=== PATIENT | female | born 2000 | race American Indian/Alaskan Native ===

== ENCOUNTER 2020-11-07 11:19 | Emergency (ER) | payer OTHER ==
[2020-11-07 11:40] VITALS: BP 123/80
--- NOTE | 2020-11-07 12:39 | Emergency Department Report ---
ED HPI - General Chief complaint: Urogenital-Female Stated complaint: POSS MISCARRIAGE Time Seen by Provider: 11/07/20 12:32 Source: patient Mode of arrival: Ambulatory Limitations: No Limitations - History of Present Illness Initial comments: This is a 20-year-old female nontoxic, well nourished in appearance, no acute signs of distress presents to the ED with c/o of vaginal spotting x1 day. Patient stated today and yesterday she noticed some spotting. Patient denies any abdominal or pelvic pain. Patient denies any vaginal discharge or foul odor. Patient denies any nausea, vomiting, chest pain, shortness of breathe, fever, chills, headache, stiff neck, numbness, tingling. Patient denies any urinary symptoms. Patient denies any allergies or PMH. Patient does follow-up with a EYE TECHNICIAN. MD Complaint: vaginal bleeding -: days(s) Radiation: none Severity scale (0 -10): 0 Improves with: none Worsens with: none Associated symptoms: vaginal bleeding. denies: nausea/vomiting, vaginal discharge, abdominal pain, dysuria, headache, vision changes, malaise, dy sparuenia, rash, seizure, shortness of breath, syncope, weakness Vaginal bleeding: light :: Yes Number of weeks : 8 Pre- care: followed by OB - Related Data Allergies Allergy/AdvReac Type Severity Reaction Status Date / Time No Known Allergies Allergy Verified 11/07/20 11:39 ED Review of Systems ROS: Stated complaint: POSS MISCARRIAGE Other details as noted in HPI Comment: All other systems reviewed and negative Constitutional: denies: chills, fever Eyes: denies: eye pain, eye discharge, vision change ENT: denies: ear pain, throat pain Respiratory: denies: cough, shortness of breath, wheezing Cardiovascular: denies: chest pain, palpitations Endocrine: no symptoms reported Gastrointestinal: denies: abdominal pain, nausea, diarrhea Genitourinary: abnormal menses. denies: urgency, dysuria, discharge Musculoskeletal: denies: back pain, joint swelling, arthralgia Skin: denies: rash, lesions Neurological: denies: headache, weakness, paresthesias Psychiatric: denies: anxiety, depression Hematological/Lymphatic: denies: easy bleeding, easy bruising ED Past Medical Hx - Past Medical History Previous Medical History?: No - Surgical History Past Surgical History?: No - Social History Smoking Status: Never Smoker Substance Use Type: None ED Physical Exam - General Limitations: No Limitations General appearance: alert, in no apparent distress - Head Head exam: Present: atraumatic, normocephalic - Eye Eye exam: Present: normal appearance - Neck Neck exam: Present: normal inspection, full ROM - Respiratory Respiratory exam: Absent: respiratory distress - Cardiovascular Cardiovascular Exam: Present: regular rate - GI/Abdominal GI/Abdominal exam: Present: soft, normal bowel sounds. Absent: distended, tenderness, guarding, rebound, rigid, diminished bowel sounds - Extremities Exam Extremities exam: Present: full ROM - Back Exam Back exam: Present: full ROM - Neurological Exam Neurological exam: Present: alert, oriented X3, normal gait - Psychiatric Psychiatric exam: Present: normal affect, normal mood - Skin Skin exam: Present: warm, dry, intact, normal color. Absent: rash ED Course Vital Signs 11/07/20 11/07/20 11:38 11:40 Temperature 98.6 F Pulse Rate 89 Respiratory 20 Rate Blood Pressure 123/80 O2 Sat by Pulse 99 Oximetry - Reevaluation(s) Reevaluation #1: 11/07/20 12:39 Patient is speaking in full sentences with no signs of distress noted. ED Medical Decision Making - Lab Data Result diagrams: 11/07/20 12:32 Lab Results 11/07/20 11/07/20 11/07/20 Range/Units 12:32 12:32 12:57 WBC 4.4 L (4.5-11.0) K/mm3 RBC 4.99 (3.65-5.03) M/mm3 Hgb 13.6 (10.1-14.3) gm/dl Hct 42.0 (30.3-42.9) % MCV 84 (79-97) fl MCH 27 L (28-32) pg MCHC 33 (30-34) % RDW 12.9 L (13.2-15.2) % Plt Count 211 (140-440) K/mm3 Lymph % (Auto) 47.1 H (13.4-35.0) % Weld % (Auto) 7.5 H (0.0-7.3) % Eos % (Auto) 1.8 (0.0-4.3) % Baso % (Auto) 1.0 (0.0-1.8) % Lymph # (Auto) 2.1 (1.2-5.4) K/mm3 Weld # (Auto) 0.3 (0.0-0.8) K/mm3 Eos # (Auto) 0.1 (0.0-0.4) K/mm3 Baso # (Auto) 0.0 (0.0-0.1) K/mm3 Seg Neutrophils % 42.6 (40.0-70.0) % Seg Neutrophils # 1.9 (1.8-7.7) K/mm3 HCG, Quant 7571 H (0-4) mIU/mL Urine Color Straw (Yellow) Urine Turbidity Clear (Clear) Urine pH 7.0 (5.0-7.0) Ur Specific [place] 1.002 L (1.003-1.030) Urine Protein <15 mg/dl (Negative) mg/dL Urine Glucose (UA) Neg (Negative) mg/dL Urine Ketones Neg (Negative) mg/dL Urine Blood Sm (Negative) Urine Nitrite Neg (Negative) Urine Bilirubin Neg (Negative) Urine Urobilinogen < 2.0 (<2.0) mg/dL Ur Leukocyte Esterase Neg (Negative) Urine WBC (Auto) 1.0 (0.0-6.0) /HPF Urine RBC (Auto) 1.0 (0.0-6.0) /HPF U Epithel Cells (Auto) 1.0 (0-13.0) /HPF Hyaline Casts 1 /LPF Blood Type 11/07/20 Range/Units Unknown WBC (4.5-11.0) K/mm3 RBC (3.65-5.03) M/mm3 Hgb (10.1-14.3) gm/dl Hct (30.3-42.9) % MCV (79-97) fl MCH (28-32) pg MCHC (30-34) % RDW (13.2-15.2) % Plt Count (140-440) K/mm3 Lymph % (Auto) (13.4-35.0) % Weld % (Auto) (0.0-7.3) % Eos % (Auto) (0.0-4.3) % Baso % (Auto) (0.0-1.8) % Lymph # (Auto) (1.2-5.4) K/mm3 Weld # (Auto) (0.0-0.8) K/mm3 Eos # (Auto) (0.0-0.4) K/mm3 Baso # (Auto) (0.0-0.1) K/mm3 Seg Neutrophils % (40.0-70.0) % Seg Neutrophils # (1.8-7.7) K/mm3 HCG, Quant (0-4) mIU/mL Urine Color (Yellow) Urine Turbidity (Clear) Urine pH (5.0-7.0) Ur Specific [place] (1.003-1.030) Urine Protein (Negative) mg/dL Urine Glucose (UA) (Negative) mg/dL Urine Ketones (Negative) mg/dL Urine Blood (Negative) Urine Nitrite (Negative) Urine Bilirubin (Negative) Urine Urobilinogen (<2.0) mg/dL Ur Leukocyte Esterase (Negative) Urine WBC (Auto) (0.0-6.0) /HPF Urine RBC (Auto) (0.0-6.0) /HPF U Epithel Cells (Auto) (0-13.0) /HPF Hyaline Casts /LPF Blood Type O POSITIVE - Radiology Data [facility] [address] [place] [address] Ultrasound Report Signed Patient: TONEY MAHMOOD MR#: [id number] : 2000 Acct:[id number] Age/Sex: 20 / F ADM Date: 11/07/20 Loc: ED Attending Dr: Ordering Physician: BI BHAKTA NP Date of Service: 11/07/20 Procedure(s): US OB <= 14 weeks fetus Accession Number(s): [id number] cc: BI BHAKTA NP ULTRASOUND OBSTETRIC INDICATION / CLINICAL INFORMATION: vaginal bleeding. Pelvic pain Clinical Gestational Age (GA) in weeks, days: 7,5 TECHNIQUE: Transabdominal and Transvaginal. COMPARISON: None available. FINDINGS: GESTATIONAL SAC: Well-defined oval shape and intrauterine in location. YOLK SAC: Not visualized EMBRYO/FETUS: pole is seen. - [place]-Rump Length = 0.9 cm = 6.6 weeks, days - Heart Rate, beats per minute (if present) = 149 ADNEXA: There is a 2 cm cyst in the right ovary FREE FLUID: Minimal free fluid is seen in the cul-de-sac ADDITIONAL FINDINGS: 1 cm fibroid is noted in the anterior uterus. IMPRESSION: 1. Single, living intrauterine with estimated sonographic age of 6,6 weeks, days. Signer Name: Aries Cline MD Signed: 11/07/2020 2:22 PM Workstation Name: [id number] Transcribed By: SS Dictated By: Aries Cline MD Electronically Authenticated By: Aries Cline MD Signed Date/Time: 11/07/201421 DD/ 141 TD/TT: [facility] [address] [place] [address] Ultrasound Report Signed Patient: TONEY MAHMOOD MR#: [id number] : 2000 Acct:[id number] Age/Sex: 20 / F ADM Date: 11/07/20 Loc: ED Attending Dr: Ordering Physician: BI BHAKTA NP Date of Service: 11/07/20 Procedure(s): US OB <= 14 weeks fetus Accession Number(s): [id number] cc: BI BHAKTA NP ULTRASOUND OBSTETRIC INDICATION / CLINICAL INFORMATION: vaginal bleeding. Pelvic pain Clinical Gestational Age (GA) in weeks, days: 7,5 TECHNIQUE: Transabdominal and Transvaginal. COMPARISON: None available. FINDINGS: GESTATIONAL SAC: Well-defined oval shape and intrauterine in location. YOLK SAC: Not visualized EMBRYO/FETUS: pole is seen. - [place]-Rump Length = 0.9 cm = 6.6 weeks, days - Heart Rate, beats per minute (if present) = 149 ADNEXA: There is a 2 cm cyst in the right ovary FREE FLUID: Minimal free fluid is seen in the cul-de-sac ADDITIONAL FINDINGS: 1 cm fibroid is noted in the anterior uterus. IMPRESSION: 1. Single, living intrauterine with estimated sonographic age of 6,6 weeks, days. Signer Name: Aries Cline MD Signed: 11/07/2020 2:22 PM Workstation Name: [id number] Transcribed By: SS Dictated By: Aries Cline MD Electronically Authenticated By: Aries Cline MD Signed Date/Time: 11/07/201421 DD/ 18 TD/TT: - Medical Decision Making This is a 20-year-old female presents with threatened miscarriage. Patient is stable and was examined by me. Normal abdominal exam. US OB obtained and dictated by the radiologist. Ua obtained. Quantative serum test obtained. Patient notified of the US report with no questions noted by the patient. Patient was instructed f/u with EYE TECHNICIAN in 3-5 days. RH factor positive. Labs within normal limits. At time of discharge, the patient does not seem toxic or ill in appearance. No acute signs of distress noted. Patient agrees to discharge treatment plan of care. No further questions noted by the patient. Critical care attestation.: If time is entered above; I have spent that time in minutes in the direct care of this critically ill patient, excluding procedure time. ED Disposition Clinical Impression: Threatened miscarriage Disposition: DC-01 TO HOME OR SELFCARE Is pt being admited?: No Does the pt Need Aspirin: No Condition: Stable Instructions: Threatened Miscarriage Additional Instructions: Follow-up with a OBGYN doctor in 3-5 days or if symptoms worsen and continue return to emergency room as soon as possible. Referrals: [facility] [Referring] - 3-5 Days [facility] [Provider Group] - 3-5 Days [facility] [Provider Group] - 3-5 Days Time of Disposition: 14:31
[2020-11-07 13:12] LABS: Eosinophils # (Auto) 0.1 K/mm3 (0.0-0.4); Eosinophils % (Auto) 1.8 % (0.0-4.3); Hemoglobin 13.6 gm/dl (10.1-14.3); Lymphocytes # (Auto) 2.1 K/mm3 (1.2-5.4); Lymphocytes % (Auto) 47.1 % (13.4-35.0); Mean Corpuscular HGB Conc 33 % (30-34); Mean Corpuscular Volume 84 fl (79-97); Monocytes # (Auto) 0.3 K/mm3 (0.0-0.8); Monocytes % (Auto) 7.5 % (0.0-7.3); Platelet Count 211 K/mm3 (140-440); Red Blood Count 4.99 M/mm3 (3.65-5.03); Red Cell Distribution Width 12.9 % (13.2-15.2)
[2020-11-07 13:36] LABS: Bilirubin,Urine NEG (Negative); Blood,Urine SM (Negative); Color,Urine Straw (Yellow); Hyaline Casts,Urine 1 /LPF; Protein,Urine <15 mg/dL mg/dL (Negative); Urobilinogen,Urine < 2.0 mg/dL (<2.0)
--- NOTE | 2020-11-07 14:26 | Ultrasound Report ---
ULTRASOUND OBSTETRIC INDICATION / CLINICAL INFORMATION: vaginal bleeding. Pelvic pain Clinical Gestational Age (GA) in weeks, days: 7,5 TECHNIQUE: Transabdominal and Transvaginal. COMPARISON: None available. FINDINGS: GESTATIONAL SAC: Well-defined oval shape and intrauterine in location. YOLK SAC: Not visualized EMBRYO/FETUS: pole is seen. - [place]-Rump Length = 0.9 cm = 6.6 weeks, days - Heart Rate, beats per minute (if present) = 149 ADNEXA: There is a 2 cm cyst in the right ovary FREE FLUID: Minimal free fluid is seen in the cul-de-sac ADDITIONAL FINDINGS: 1 cm fibroid is noted in the anterior uterus. IMPRESSION: 1. Single, living intrauterine with estimated sonographic age of 6,6 weeks, days. Signer Name: Aries Cline MD Signed: 11/07/2020 2:22 PM Workstation Name: [id number]
--- NOTE | 2020-11-07 14:26 | Ultrasound Report ---
ULTRASOUND OBSTETRIC INDICATION / CLINICAL INFORMATION: vaginal bleeding. Pelvic pain Clinical Gestational Age (GA) in weeks, days: 7,5 TECHNIQUE: Transabdominal and Transvaginal. COMPARISON: None available. FINDINGS: GESTATIONAL SAC: Well-defined oval shape and intrauterine in location. YOLK SAC: Not visualized EMBRYO/FETUS: pole is seen. - [place]-Rump Length = 0.9 cm = 6.6 weeks, days - Heart Rate, beats per minute (if present) = 149 ADNEXA: There is a 2 cm cyst in the right ovary FREE FLUID: Minimal free fluid is seen in the cul-de-sac ADDITIONAL FINDINGS: 1 cm fibroid is noted in the anterior uterus. IMPRESSION: 1. Single, living intrauterine with estimated sonographic age of 6,6 weeks, days. Signer Name: Aries Cline MD Signed: 11/07/2020 2:22 PM Workstation Name: [id number]
== END 2020-11-07 15:00 | disposition home or self-care (01) ==
LOC: ED 11:19
DX: O20.0 Threatened abortion (principal); Z3A.01 Less than 8 weeks gestation of pregnancy
CPT/HCPCS: 36415; 76801; 76817; 81001; 84702; 85025; 86900; 86901